=== PATIENT | female | born 1980 | race African-American/Black ===

== ENCOUNTER 2020-01-17 06:44 | Observation (INO) | payer MEDICAID ==
[~2020-01-17] VITALS: Ht 165.1 cm; Wt 106.6 kg
[2020-01-17] MEDS ORDERED: ONDANSETRON HCL 4MG/2ML INJ IV PRN (07:15)
[2020-01-17] MEDS ORDERED: FAMOTIDINE 20MG/2ML VIAL IV ONE (08:00)
[2020-01-17] MEDS ORDERED: CITRIC ACID/SODIUM CITRATE SOLN 30ML UDC PO SCH (08:30)
[2020-01-17] MEDS ORDERED: BUTORPHANOL TARTRATE 2 MG/ML VIAL IV SCH (08:30)
[2020-01-17] MEDS: LACTATED RINGERS 1,000 ML IV SCH ×2 (08:37→12:42)
[2020-01-17 09:04] LABS: BASOPHILS % 0.2 % (0.0-2.0); HEMATOCRIT. 32.8 % (36.0-48.0); HEMOGLOBIN. 10.9 g/dL (12.0-16.0); LYMPHOCYTES % 11.4 % (20.0-50.0); MEAN CORPUSCULAR HEMOGLOBIN 29.6 pg (28.0-32.0); MEAN CORPUSCULAR VOLUME 88.8 fL (81.0-99.0); MEAN PLATELET VOLUME 7.9 fl (7.4-10.4); MONOCYTES % 5.6 % (2.0-8.0); NEUTROPHILS % 82.8 % (40.0-76.0); PLATELET 256 x1000/uL (130-400); RED BLOOD CELL COUNT 3.69 mill/uL (4.2-5.4); RED CELL DISTRIBUTION WIDTH 14.1 % (11.6-14.6)
[2020-01-17 09:07] VITALS: BP 134/72
[2020-01-17 09:20] LABS: CHLORIDE 109 mEq/L (98-107)
[2020-01-17 10:25] LABS: CLARITY URINE CLOUDY (CLEAR); COLOR URINE DARK YELLOW (YELLOW); KETONES URINE 2+ (NEGATIVE); LEUKOCYTE ESTERASE URINE TRACE (NEGATIVE); NITRITE URINE NEGATIVE (NEGATIVE); OCCULT BLOOD URINE NEGATIVE (NEGATIVE); PH URINE 5.5 (4.5-8.0); PROTEIN URINE 1+ (NEGATIVE); SPECIFIC GRAVITY URINE 1.034 (1.005-1.030)
[2020-01-17 10:52] LABS: *AMPHETAMINES SCREEN URINE NEGATIVE (NEGATIVE); *BARBITURATES SCREEN URINE NEGATIVE (NEGATIVE); *BENZODIAZEPINES SCREEN URINE NEGATIVE (NEGATIVE); *COCAINE SCREEN URINE NEGATIVE (NEGATIVE); METHADONE URINE SCREEN NEGATIVE (NEGATIVE)
[2020-01-17 10:53] LABS: CANNABINOID URINE SCREEN NEGATIVE (NEGATIVE); OPIATES URINE SCREEN NEGATIVE (NEGATIVE); PHENCYCLIDINE URINE SCREEN NEGATIVE (NEGATIVE)
[2020-01-17] MEDS ORDERED: CEFAZOLIN 2,000 MG in DEXT 5% WATER 100 ML IV SCH (11:30)
== END 2020-01-17 13:35 | disposition home or self-care (01) ==
LOC: 8 EST LDRP 06:44
PROVIDERS: ADMIT Obstetrics & Gynecology; ATTEND Obstetrics & Gynecology
DX: O21.2 Late vomiting of pregnancy (principal); O26.893 Other specified pregnancy related conditions, third trimester; R10.10 Upper abdominal pain, unspecified; R10.13 Epigastric pain; Z3A.36 36 weeks gestation of pregnancy; Z98.891 History of uterine scar from previous surgery; Z79.899 Other long term (current) drug therapy
CPT/HCPCS: 36415; 59025; 80053; 80305; 81003; 85025; 87086; 96361; 96365; 96375; G0378; J0595; J0690; J2405; J3490; J7060; 96360; 99281